=== PATIENT | male | born 1985 | race Caucasian/White ===

== ENCOUNTER 2024-03-12 16:41 | Emergency (ER) | payer OTHER, BC ==
--- OUTSIDE RECORDS SUMMARY | 2024-03-12 16:44 | XMS REPORT | Continuity of Care Document ---
Author Name Unknown Address [address] [facility] [address] [place] [address] [facility] thconnect Address [address] [facility] [place] [address] Care Team Providers Care Crane Service Technician Name Role Phone Neeraj Joya Primary Care Physician + [phone] Gemma Ca Attending Clinician [phone] Jazzmine Hartmann PA-C Attending Clinician [phone] Unknown, Attending Attending Clinician Unavailab JAZZMINE Nicolas Attending Clinician Unavailable GEMMA CASTANON Attending Clinician UnavailLai Majano Attending Clinician [phone] LAI CRESPO Attending Clinician Unavailable Doctor Unassigned, [employer] Attending Clinician U Radha Trejo Attending Clinician + [phone] RADHA TURNER Attending Clinician Yodit Herrera Attending Clinician [phone] Ramya Love Attending Clinician [phone] Dick Romano MD Attending Clinician [phone] Josh Wilson Attending Clinician [phone] Payers Payer Name Policy Type Policy Number Effective Date Expirati on Date Source Problems Condition Name Condition Details Condition Category Status Onset Date Resolution Date Last Treatment Date Treating Clinician Comments Source No known active problems No known active problems Disease [facility] Allergies, Adverse Reactions, Alerts Allergy Name Allergy Type Status Severity Reaction(s) Onset Date Inactive Date Treating Clinician Comments Source POISON DENA EXTRACT DRUG INGREDI Active Other-Cmnt 04-21 00:00: 00 [facility] Poison Dena Extract Propensi ty to adverse reaction s Active Other - See comments 04-21 00:00: 00 [facility] NO KNOWN ALLERGIE S Drug Class Active [facility] Social History Social Habit Start Date Stop Date Quantity Comments Source [facility] intake 2023-02-26 00:00:00 2023-02-26 00:00:00 Current non-drinker of alcohol (finding) [facility] Exposure to SARS-CoV-2 (event) 2021-12-15 00:00:00 2021-12-25 16:31:[address] [facility] Tobacco use and exposure 2021-12-25 00:00:00 2021-12-25 00:00:00 Smokeless tobacco non-user [facility] History of Social function 2018-09-04 00:00:00 2018-09-04 00:00:00 [facility] Sex Assigned At 1985 00:00:00 1985 00:00:00 [facility] Smoking Status Start Date Stop Date Source Never smoked tobacco [facility] Medications Ordered Medication Name Filled Medication Name Start Date Stop Date Current Medication? Ordering Clinician Indication Dosage Frequency Signature (SIG) Comments Components Source oseltamivir (TAMIFLU) 75 mg capsule 02-26 00:00: 00 03-04 05:59 :00 No [id number] 75mg Take 1 capsule by mouth in the morning and 1 capsule in the evening. Do all this for 5 days. [facility] nirmatrelvi r-ritonavir (PAXLOVID) 300 mg (150 mg x 2)-100 mg tablet 2022-02 00:00: 00 Yes [id number] 3{tbl} Take 3 tablets by mouth in the morning and 3 tablets in the evening. [facility] dexamethaso ne (DECADRON) injection 10 mg 11-24 18:30: 00 11-24 18:00 :00 No [id number] 10mg [facility] hydrocortis one 2.5 % cream 11-24 00:00: 00 Yes [id number] Apply to area(s) 2 (two) times daily. [facility] predniSONE 10 mg tablet 11-24 00:00: 00 12-07 04:59 :00 No [id number] Take 4 tablets by mouth daily for 3 days, THEN 3 tablets daily for 3 days, THEN 2 tablets daily for 3 days, THEN 1 tablet daily for 3 days. [facility] dexamethaso ne (DECADRON) injection 10 mg 11-06 23:30: 00 11-06 22:27 :00 No [id number] 10mg [facility] docosahexae noic acid/epa (FISH OIL ORAL) 11-06 17:06: 18 Yes Take by mouth. [facility] predniSONE 20 mg tablet 11-06 00:00: 00 11-12 04:59 :00 No [id number] 40mg Take 2 tablets by mouth in the morning for 5 days. [facility] testosteron e cypionate 200 mg/mL injection 09-19 00:00: 00 Yes 200mg 1 mL by Intramuscu lar route. [facility] acetaminoph en (TYLENOL) tablet 975 mg 10-26 00:45: 00 10-25 23:52 :00 No [id number] 975mg [facility] ibuprofen (IBU) tablet 800 mg 10-26 00:45: 00 10-25 23:52 :00 No [id number] 800mg [facility] nirmatrelvi r-ritonavir (PAXLOVID, EUA,) 300 mg (150 mg x 2)-100 mg tablet 2022-0 8-31 00:00: 00 12-05 00:00 :00 No [id number] 3{tbl} Take 3 tablets by mouth in the morning and 3 tablets in the evening. [facility] bromphenira mine-pseudo ephedrine-D M (BROMFED DM) 2-30-10 mg/5 mL syrup 2-04 00:00: 00 Yes [id number] 10mL Take 10 mL by mouth 2 (two) times daily as needed for Congestion /Allergies . [facility] ketorolac (TORADOL) injection 60 mg 03-20 04:45: 00 03-20 03:35 :00 No 60mg [facility] bromphenira mine-pseudo ephedrine-D M (BROMFED DM) 2-30-10 mg/5 mL syrup 03-19 00:00: 00 03-30 05:59 :00 No [id number] 10mL Take 10 mL by mouth 2 (two) times daily as needed for Congestion /Allergies for up to 10 days. [facility] ibuprofen 400 mg tablet 03-19 00:00: 00 03-25 05:59 :00 No [id number] 400mg Take 1 tablet by mouth every 6 (six) hours as needed for Pain (scale 4-6) for up to 5 days. [facility] BETA CAROTENE ORAL 11-09 20:43: 49 Yes Take by mouth. [facility] BETA CAROTENE ORAL 11-09 15:43: 49 Yes Take by mouth. [facility] BETA CAROTENE ORAL 09-08 14:23: 05 Yes Take by mouth. [facility] LEXAPRO 20 MG ORAL TAB 09-08 14:21: 47 Yes None Entered [facility] LEXAPRO 20 MG ORAL TAB 09-08 09:21: 47 Yes None Entered [facility] promethazin e-dextromet horphan 6.25-15 mg/5 mL syrup 07-16 00:00: 00 03-19 00:00 :00 No [id number] 5mL Take 5 mL by mouth 4 (four) times daily as needed for Cough. [facility] triamcinolo ne acetonide 0.1 % ointment 10-12 00:00: 00 Yes [id number] Apply to area(s) 3 (three) times daily. [facility] fluticasone 50 mcg/actuati on nasal spray 10-12 00:00: 00 03-19 00:00 :00 No [id number] 1 spray each nostril twice a day for 5 days then daily [facility] Immunizations Ordered Immunization Name Filled Immunization Name Date Status Comments Source TDAP (ADACEL) VACCINE Unknown Completed [facility] Influenza Virus Vaccine Quad .5 mL IM 6+ MO (FLUZONE/FLULAVAL/FL UARIX) Unknown Completed [facility] Hepatitis A Adult Unknown Completed Un [facility] HEPATITIS A [facility] HPV Unknown Completed [facility] MMR Unknown Completed [facility]heria [facility] (AD[facility]) VACCINE Unknown Completed [facility] Influenza Virus Vaccine Quad .5 mL IM 6+ MO (FLUZONE/FLULAVAL/FL UARIX) Unknown Completed [facility] Hepatitis A Adult Unknown Completed Un [facility] HEPATITIS A Unknown Completed [facility] HPV Unknown Completed [facility] MMR Unknown Completed [facility] Tetanus/Diptheria [facility] TDAP (ADACEL) VACCINE Unknown Completed [facility] Influenza Virus Vaccine Quad .5 mL IM 6+ MO (FLUZONE/FLULAVAL/FL UARIX) Unknown Completed [facility] Hepatitis A Adult [facility] HPV Unknown Completed [facility] MMR Unknown Completed [facility] Tetanus/Diptheria [facility] TDAP (ADACEL) VACCINE Unknown Completed [facility] Influenza Virus Vaccine Quad .5 mL IM 6+ MO (FLUZONE/FLULAVAL/FL UARIX) Unknown Completed [facility] Hepatitis A Adult [facility] Unknown Com[facility] MMR Unknown Completed [facility] Tetanus/Diptheria Unknown Completed Un [facility] Vital Signs Vital Name Observation Time Observation Value Comments S sriramce Systolic blood pressure 2023-02-26 18:45:00 142 mm[Hg] [facility] Diastolic blood pressure 2023-02-26 18:45:00 93 mm[Hg] [facility] Heart rate 2023-02-26 18:44:00 75 /[facility] Body temperature 2023-02-26 18:44:[address] [facility] Respiratory rate 2023-02-26 18:44:00 18 /min [facility] Body height 2023-02-26 18:44:00 177.8 cm [facility] Body weight 2023-02-26 18:44:00 91.173 kg [facility] BMI 2023-02-26 18:44:00 28.84 kg/m2 [facility] Oxygen saturation in Arterial blood by Pulse oximetry 2023-02-26 18:44:00 97 /min [facility] Systolic blood pressure 2022-12-05 21:35:00 125 mm[Hg] [facility] Diastolic blood pressure 2022-12-05 21:35:00 87 mm[Hg] [facility] Heart rate 2022-12-05 21:35:00 89 /min [facility] Body temperature 2022-12-05 21:35:[address] [facility] Respiratory rate 2022-12-05 21:35:00 15 /min [facility] Body height 2022-12-05 21:35:00 177.8 cm [facility] Body weight 2022-12-05 21:35:00 91.581 kg [facility] BMI 2022-12-05 21:35:00 28.97 kg/m2 [facility] Oxygen saturation in Arterial blood by Pulse oximetry 2022-12-05 21:35:00 99 /min [facility] Systolic blood pressure 2022-11-24 17:32:00 129 mm[Hg] [facility] Diastolic blood pressure 2022-11-24 17:32:00 87 mm[Hg] [facility] Heart rate 2022-11-24 17:32:00 79 /min [facility] Body temperature 2022-11-24 17:32:[address] [facility] Respiratory rate 2022-11-24 17:32:00 17 /min [facility] Body height 2022-11-24 17:32:00 177.8 cm [facility] Body weight 2022-11-24 17:32:00 91.882 kg [facility] BMI 2022-11-24 17:32:00 29.06 kg/m2 [facility] Oxygen saturation in Arterial blood by Pulse oximetry 2022-11-24 17:32:00 97 /min [facility] Systolic blood pressure 2022-11-06 22:09:00 147 mm[Hg] [facility] Diastolic blood pressure 2022-11-06 22:09:00 91 mm[Hg] [facility] Heart rate 2022-11-06 22:03:00 64 /min [facility] Body temperature 2022-11-06 22:03:[address] [facility] Respiratory rate 2022-11-06 22:03:00 14 /min [facility] Body height 2022-11-06 22:03:00 177.8 cm [facility] Body weight 2022-11-06 22:03:00 92.534 kg [facility] BMI 2022-11-06 22:03:00 29.27 kg/m2 [facility] Oxygen saturation in Arterial blood by Pulse oximetry 2022-11-06 22:03:00 100 /min [facility] Systolic blood pressure 2021-12-25 21:50:00 136 mm[Hg] [facility] Diastolic blood pressure 2021-12-25 21:50:00 89 mm[Hg] [facility] Heart rate 2021-12-25 21:50:00 85 /min [facility] Body temperature 2021-12-25 21:50:[address] [facility] Respiratory rate 2021-12-25 21:50:00 17 /min [facility] Body height 2021-12-25 21:50:00 177.8 cm [facility] Body weight 2021-12-25 21:50:00 88.451 kg [facility] BMI 2021-12-25 21:50:00 27.98 kg/m2 [facility] Oxygen saturation in Arterial blood by Pulse oximetry 2021-12-25 21:50:00 97 /min [facility] Body height 2021-10-25 23:33:00 177.8 cm [facility] Body weight 2021-10-25 23:33:00 93.214 kg [facility] BMI 2021-10-25 23:33:00 29.49 kg/m2 [facility] Oxygen saturation in Arterial blood by Pulse oximetry 2021-10-25 23:33:00 98 /min [facility] Systolic blood pressure 2021-10-25 23:33:00 128 mm[Hg] [facility] Diastolic blood pressure 2021-10-25 23:33:00 87 mm[Hg] [facility] Heart rate 2021-10-25 23:33:00 95 /min [facility] Body temperature 2021-10-25 23:33:[address] [facility] Respiratory rate 2021-10-25 23:33:00 18 /min [facility] Systolic blood pressure 2019-03-20 03:17:00 141 mm[Hg] [facility] Diastolic blood pressure 2019-03-20 03:17:00 89 mm[Hg] [facility] Heart rate 2019-03-20 03:16:00 74 /min [facility] Body temperature 2019-03-20 03:16:[address] [facility] Respiratory rate 2019-03-20 03:16:00 20 /min [facility] Body height 2019-03-20 03:16:00 177.8 cm [facility] Body weight 2019-03-20 03:16:00 95.709 kg [facility] BMI 2019-03-20 03:16:00 30.28 kg/m2 [facility] Oxygen saturation in Arterial blood by Pulse oximetry 2019-03-20 03:16:00 96 /min [facility] Systolic blood pressure 2018-11-09 20:44:00 118 mm[Hg] [facility] Diastolic blood pressure 2018-11-09 20:44:00 85 mm[Hg] [facility] Heart rate 2018-11-09 20:43:00 76 /min [facility] Body temperature 2018-11-09 20:43:[address] [facility] Respiratory rate 2018-11-09 20:43:00 17 /min [facility] Body height 2018-11-09 20:43:00 177.8 cm [facility] Body weight 2018-11-09 20:43:00 96.525 kg [facility] BMI 2018-11-09 20:43:00 30.53 kg/m2 [facility] Oxygen saturation in Arterial blood by Pulse oximetry 2018-11-09 20:43:00 97 /min [facility] Procedures Procedure Date / Time Performed Performing Clinician Source POCT MOLECULAR FLU 2023-02-26 18:55:00 Unknown, Attend [facility] POCT SARS-COV-2 ANTIGEN (BINAX NOW) 2023-02-26 18:48:00 Shahbaz [facility] POCT SARS-COV-2 ANTIGEN (BINAX NOW) 2022-12-05 21:38:00 Shahbaz [facility] POCT MOLECULAR FLU 2022-12-05 21:37:00 Unknown, Attend [facility] POCT MOLECULAR STREP 2022-12-05 21:33:00 [place], At[place]jay sandoval [facility] ASSIGNMENT OF BENEFITS 2022-11-06 21:51:16 Docto r Unassigned, [employer] [facility] POCT SARS-COV-2 ANTIGEN (BINAX NOW) 2021-10-25 23:40:[address] [facility] CONSENT/REFUSAL FOR DIAGNOSIS AND TREATMENT 2021-10-25 23:17:21 Doctor Unassigned, [employer] [facility] POCT RAPID STREP SCREEN FOR GROUP A 2018-11-09 20:42:[address] [facility] DERMATOPATHOLOGY TISSUE EXAM 2018-09-08 00:00:[address] [facility] Encounters Start Date/Time End Date/Time Encounter Type Admission Type Attending Clinicians Care Facility Care Department Encounter ID Source 2023-03-29 00:00:00 2023-03-29 00:00:00 Refill Gemma Castanon [facility] [id number] 350.1.13.10 4.2.7.2.686 [id number] [facility] 2023-02-26 12:20:00 2023-02-26 12:40:00 Urgent Care Jazzmine Hartmann, Attending [facility] [id number] 350.1.13.10 4.2.7.2.686 [id number] [facility] 2023-02-26 12:20:00 2023-02-26 12:20:00 Outpatient JAZZMINE FRYE [facility] [id number] [facility] 2023-01-14 00:00:00 2023-01-14 00:00:00 Refill Gemma Castanon [facility] [id number] 350.1.13.10 4.2.7.2.686 [id number] [facility] 2022-12-05 16:20:00 2022-12-05 17:24:32 Outpatient JAZZMINE FRYE [facility] [id number] [facility] 2022-12-05 16:20:00 2022-12-05 17:24:32 Urgent Care Jazzmine Hartmann, Attending [facility] [id number] 350.1.13.10 4.2.7.2.686 [id number] [facility] 2022-11-24 12:20:00 2022-11-24 13:08:55 Urgent Care Gemma Castanon Unknown, Attending [facility] 1.114 350.1.13.10 4.2.7.2.686 [id number] [facility] 2022-11-24 12:20:00 2022-11-24 13:08:55 Outpatient R GEMMA CASTANON [facility] [id number] [facility] 2022-11-06 17:00:00 2022-11-06 17:20:00 Urgent Care Lai Crespo Unknown, Attending [facility] [id number] 350.1.13.10 4.2.7.2.686 [id number] [facility] 2022-11-06 17:00:00 2022-11-06 17:00:00 Outpatient R LAI CRESPO [facility] [id number] [facility] 2022-11-06 00:00:00 2022-11-06 00:00:00 Orders Only Doctor Unassigned, [employer] [facility] 1.114 350.1.13.10 4.2.7.2.686 [id number] [facility] 2021-12-25 16:40:00 2021-12-25 17:00:00 Urgent Care Radha Turner Unknown, Attending [facility] 1.84.114 350.1.13.10 4.2.7.2.686 [id number] [facility] 2021-12-25 16:40:00 2021-12-25 16:40:00 Outpatient R RADHA TURNER [facility] [id number] [facility] 2021-10-25 18:20:00 2021-10-25 18:55:02 Outpatient R SAVI CRESPOJEAN PIERRE [facility] [id number] [facility] 2021-10-25 18:20:00 2021-10-25 18:55:02 Urgent Care Lai Crespo [facility] 1.2.114 350.1.13.10 4.2.7.2.686 [id number] [facility] 2021-10-25 00:00:00 2021-10-25 00:00:00 Orders Only Doctor Unassigned, [employer] [facility] 1.0.114 350.1.13.10 4.2.7.2.686 [id number] [facility] 2019-03-27 00:00:00 2019-03-27 00:00:00 Telephone Ramya Thomas [facility] [id number] 350.1.13.10 4.2.7.2.686 [id number] [facility] 2019-03-19 21:11:16 2019-03-19 21:26:16 Urgent Care Ramya Thomas, Attending [facility] [id number] 350.1.13.10 4.2.7.2.686 [id number] [facility] 2018-11-09 15:22:16 2018-11-09 15:37:16 Urgent Care Dick Romano, Attending [facility] [id number] 350.1.13.10 4.2.7.2.686 [id number] [facility] 2018-09-08 09:06:58 2018-09-18 13:39:07 Office Visit Josh Wilson [facility] [id number] 350.1.13.10 4.2.7.2.686 [id number] [facility] Results Test Description Test Time Test Comments Results Result Co mments Source [facility] Molecular [id number] 18:58:33* Test Item Value Reference Range Interpretation Comme nts POCT Molecular FluB (test co de = 08600-0) Positive Negative A Lab Interpretation (test cod e = 25826-7) Abnormal [facility] MOLECULAR [id number] 21:48:45* Test Item Value Reference Range Interpretation Comme nts POCT Molecular FluA (test co de = 13943-1) Negative Negative POCT Molecular FluB (test co de = 38069-3) Negative Negative Lab Interpretation (test cod e = 08334-9) Normal [facility] MOLECULAR [id number] 21:40:42* Test Item Value Reference Range Interpretation Comme nts POCT Molecular Strep (test c ode = 75587-8) Negative Negative Lab Interpretation (test cod e = 55174-3) Normal [facility] SARS-COV-2 ANTIGEN (BINAX NOW)2022-12-05 21:38:00* Test Item Value Reference Range Interpretation Comme nts POCT SARS-COV-2 ANTIGEN (test code = 46117-6) Positive Not Detected A On board controls acceptable with C Line (test code = 3574) Yes AYDIN (test code = AYDIN) accurate developme nt and interpretation of all internal controls Lab Interpretation (test code = 58381-6) Abnormal [facility] SARS-COV-2 ANTIGEN (BINAX NOW)2021-10-25 23:41:00* Test Item Value Reference Range Interpretation Comme nts POCT SARS-COV-2 ANTIGEN (test code = 5076) Positive Not Detected A On board controls acceptable with C Line (test code = 3574) Yes AYDIN (test code = AYDIN) accurate developme nt and interpretation of all internal controls Lab Interpretation (test code = 06793-2) Abnormal [facility] RAPID STREP SCREEN FOR GROUP [id number] 20:53:00* Test Item Value Reference Range Interpretation Comme nts POCT GP A STREP (test code = 19503-7) negative Negative - Negative AYDIN (test code = AYDIN) accurate developme nt and interpretation of all internal controls Lab Interpretation (test code = 51019-3) Normal [facility]
--- NOTE | 2024-03-12 17:48 | RAD REPORT ---
EXAMINATION: CT HEAD WITHOUT CONTRAST CT CERVICAL SPINE WITHOUT CONTRAST CLINICAL INDICATION: Male, 38 years old. head injury TECHNIQUE: Axial CT images from the skull base to the vertex without intravenous contrast. Axial CT i mages through the cervical spine were obtained without intravenous contrast. Sagittal and coronal reformatted images were created from the data set. Coronal and sagittal reformatted images were creat ed from the data set. One or more of the following dose reduction techniques were used: Automated exposure control, adjustment of the mA and/or kV according to patient size, and/or iterative reconstr uction. Unless otherwise specified, incidental findings do not require dedicated imaging follow-up. [id number]. COMPARISON: No prior exam. FINDINGS: Head: INTRACRANIAL: No acute intracranial hemorrhage. No hydrocephalus. No mass effect or midline shift. No significant white matter disease VASCULATURE: No visualized abnormalities in the arteries or dural venous sinuses. SCALP/SKULL: No significant soft tissue or osseous abnormalities. SINUSES: The visualized paranasal sinuses and mastoid air cells are predominantly clear. Cervical spine: ALIGNMENT: The cervical spine has normal alignment without scoliosis or spondylolisthesis. BONE: Vertebral body heights are maintained. No aggressive osseous lesions. DEGENERATIVE CHANGES: Mild cervical spondylosis with uncovertebral joint hypertrophy posterior disc o steophyte complexes at C3-4, C4-5, C5-6, C6-7 but without significant central spinal stenosis. Neural foraminal narrowing is mild to moderate bilaterally at C3-4 and mild at the other levels. SOFT TISSUE: No significant abnormalities in the soft tissue of the neck. The visualized lung apices are clear. IMPRESSION: No acute intracranial abnormality. No acute fracture or traumatic malalignment of the cervical spine.
[2024-03-12] MEDS ORDERED: LIDOCAINE 2% W/EPI 1:200,000 MPF 20 ML VIAL IM ONE (19:08)
--- NOTE | 2024-03-12 19:24 | ER ---
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 Denies ll1 LOC. Coronavirus screen: Client denies travel out of the [place] in the last 14 days. At this time, the client does not indicate any symptoms associated with coronavirus-19. Ebola Screen: Patient denies travel to an Ebola-affected area in the 21 days before illness onset. Mechanism of Injury: The problem was sustained at work. Initial Sepsis Screen: Does the patient meet any 2 criteria? No. Patient's initial sepsis screen is negative. Does the patient have a suspected source of infection? No. Patient's initial sepsis screen is negative. Risk Assessment: Do you want to hurt yourself or someone else? Patient reports no desire to harm self or others. Onset of symptoms was March 12, 2024. 16:43 Method Of Arrival: Ambulatory ll1 16:43 Acuity: [place] 2 ll1 19:41 Mechanism of Injury: resulted from. kj2 Triage Assessment: 19:39 General: Appears in no apparent distress. General: Behavior is calm, cooperative. kj2 Neuro: Reports denies headache at this time. Neuro: Level of Consciousness is awake, alert, obeys commands, Oriented to person, place, time, situation. Historical: - Allergies: 16:44 No Known Allergies; ll1 - Home Meds: 16:44 Lexapro Oral [Active]; rosuvastatin oral [Active]; ll1 - PMHx: 16:44 Hypercholesterolemia; ll1 - PSHx: 16:44 laprscopic abdominal surgery; ll1 - Immunization history:: Adult Immunizations. - Infectious Disease History:: Denies. - Social history:: Smoking status: Patient denies any tobacco usage or history of. Screenin:00 [facility] ED Fall Risk Assessment (Adult) History of falling in the last 3 months, jb4 including since admission No falls in past 3 months (0 pts) Confusion or Disorientation No (0 pts) Intoxicated or Sedated No (0 pts) Impaired Gait No (0 pts) Mobility Assist Device Used No (0 pt) Altered Elimination No (0 pt) Score/Fall Risk Level 0 - 2 = Low Risk Oriented to surroundings, Maintained a safe environment. Abuse screen: Denies threats or abuse. Nutritional screening: No deficits noted. Tuberculosis screening: No symptoms or risk factors identified. Assessment: 17:00 General: Appears in no apparent distress. comfortable, Behavior is calm, cooperative, jb4 appropriate for age. Pain: Complains of pain in top of head Pain does not radiate. Pain currently is 3 out of 10 on a pain scale. Neuro: Level of Consciousness is awake, alert, obeys commands, Oriented to person, place, time. Cardiovascular: Patient's skin is warm and dry. Respiratory: Airway is patent Respiratory effort is even, unlabored, Respiratory pattern is regular, symmetrical. Derm: Skin is intact, Skin is pink, warm \T\ dry. 19:15 Reassessment: Patient appears in no apparent distress at this time. Patient and/or kj2 family updated on plan of care and expected duration. Pain level reassessed. Patient is alert, oriented x 3, equal unlabored respirations, skin warm/dry/pink. 19:38 Reassessment: Patient appears in no apparent distress at this time. Patient and/or kj2 family updated on plan of care and expected duration. Pain level reassessed. Patient is alert, oriented x 3, equal unlabored respirations, skin warm/dry/pink. Vital Signs: 16:43 Pulse 85; Resp 18; Temp 98; Pulse Ox 98% ; Weight 90.72 kg; Height 5 ft. 10 in. ; Pain ll1 3/10; 19:35 BP 136 / 78; Pulse 80; Resp 20; Temp 98; Pulse Ox 100% ; kj2 16:43 Body Mass Index 28.70 (90.72 kg, 177.8 cm) ll1 16:43 Pain Scale: Adult ll1 [place] Coma Score: 16:43 Eye Response: spontaneous(4). Motor Response: obeys commands(6). Verbal Response: ll1 oriented(5). Total: 15. 17:02 Eye Response: spontaneous(4). Motor Response: obeys commands(6). Verbal Response: cp oriented(5). Total: 15. ED Course: 16:42 Patient arrived in ED. ll1 16:44 Triage completed. ll1 16:49 Ronn Guzman PA is PHCP. cp 16:49 Ronn Urbano MD is Attending Physician. cp 17:00 Patient has correct armband on for positive identification. Bed in low position. Call jb4 light in reach. Side rails up X 1. Provided Education on: plan of care. 17:35 CT Head C Spine In Process Unspecified. EDMS 19:37 Kayce Ceballos, EDWARD is Primary Nurse. kj2 19:38 Arm band placed on right wrist. kj2 19:38 No provider procedures requiring assistance completed. kj2 19:40 Patient did not have IV access during this emergency room visit. kj2 Administered Medications: 19:37 Drug: Lidocaine Infiltration (2 %) 20 ml 5 ml Infiltration once; to bedside with kj2 epinephrine {Note: administered by provider.} Volume: 5 ml; Route: Infiltration; 19:53 Follow up: Response: No adverse reaction kj2 Medication: 19:38 VIS not applicable for this client. kj2 Outcome: 19:24 Discharge ordered by MD. cp 19:39 Condition: stable kj2 19:39 Discharge instructions given to patient, Instructed on discharge instructions, follow up and referral plans. 19:40 Discharged to home ambulatory, kj2 19:54 Patient left the ED. kj2 Signatures: Dispatcher [employer] EDSC Ronn Guzman PA PA cp Bryson, James, RN RN jb4 Mary Low RN RN ll1 Kayce Ceballos RN RN kj2
--- NOTE | 2024-03-12 19:25 | EDPHYS ---
Physician Documentation [facility] Name: Lefty Lopez Age: 38 yrs Sex: Male : 1985 Arrival Date: 03/12/2024 Time: 16:41 Bed 12 Private MD: ED Physician Ronn Urbano HPI: 03/12 17:02 This 38 yrs old Male presents to ER via Ambulatory with complaints of Closed Head cp Injury-Adult. 17:02 The patient or guardian reports injury. The complaints affect the top of head. 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 Onset: The symptoms/episode began/occurred just prior to arrival. Associated signs and symptoms: Pertinent positives: neck pain. Historical: - Allergies: 16:44 No Known Allergies; ll1 - Home Meds: 16:44 Lexapro Oral [Active]; rosuvastatin oral [Active]; ll1 - PMHx: 16:44 Hypercholesterolemia; ll1 - PSHx: 16:44 laprscopic abdominal surgery; ll1 - Immunization history:: Adult Immunizations. - Infectious Disease History:: Denies. - Social history:: Smoking status: Patient denies any tobacco usage or history of. ROS: 17:05 Constitutional: Negative for body aches, chills, fever, poor PO intake, cp 17:05 Eyes: Negative for injury, pain, redness, and discharge, cp 17:05 Neck: Positive for pain with movement, pain at rest, Negative for stiffness, 17:05 Cardiovascular: Negative for chest pain, 17:05 Respiratory: Negative for cough, shortness of breath, wheezing, 17:05 Abdomen/GI: Negative for abdominal pain, vomiting, diarrhea, constipation, 17:05 Back: Negative for pain at rest, pain with movement, 17:05 Skin: Positive for laceration(s), of the scalp, 17:05 Neuro: Negative for altered mental status, loss of consciousness, seizure activity, weakness, 17:05 All other systems are negative, Exam: 17:10 Constitutional: The patient appears in no acute distress, alert, awake, non-toxic, well cp developed, well nourished, 17:10 Head/face: Noted is a laceration(s), that is linear, of the top of head, swelling, cp that is mild, tenderness, that is moderate, 17:10 Eyes: Periorbital structures: appear normal, Pupils: equal, round, and reactive to light and accomodation, Extraocular movements: intact throughout, Lids and lashes: appear normal, bilaterally, 17:10 ENT: External ear(s): are unremarkable, Nose: is normal, Mouth: Lips: moist, Oral mucosa: moist, Posterior pharynx: Airway: no evidence of obstruction, patent, 17:10 Neck: ROM/movement: pain, that is mild, with any movement, limited range of motion, is not appreciated, 17:10 Chest/axilla: Inspection: normal, 17:10 Cardiovascular: Rate: normal, Rhythm: regular, 17:10 Respiratory: the patient does not display signs of respiratory distress, Respirations: normal, no use of accessory muscles, no retractions, labored breathing, is not present, Breath sounds: are clear throughout, no decreased breath sounds, 17:10 Abdomen/GI: Exam negative for discomfort, distension, guarding, Inspection: abdomen appears normal, 17:10 Back: pain, is absent, ROM is normal, 17:10 Neuro: Orientation: to person, place \T\ time. Mentation: is normal, Motor: moves all fours, strength is normal, Sensation: is normal, Vital Signs: 16:43 Pulse 85; Resp 18; Temp 98; Pulse Ox 98% ; Weight 90.72 kg; Height 5 ft. 10 in. ; Pain ll1 3/10; 19:35 BP 136 / 78; Pulse 80; Resp 20; Temp 98; Pulse Ox 100% ; kj2 16:43 Body Mass Index 28.70 (90.72 kg, 177.8 cm) ll1 16:43 Pain Scale: Adult ll1 [place] Coma Score: 16:43 Eye Response: spontaneous(4). Motor Response: obeys commands(6). Verbal Response: ll1 oriented(5). Total: 15. 17:02 Eye Response: spontaneous(4). Motor Response: obeys commands(6). Verbal Response: cp oriented(5). Total: 15. Laceration: 19:22 Wound Repair of 8cm ( 3.1in ) subcutaneous laceration to top of head. Linear shaped.. cp Distal neuro/vascular/tendon intact. Anesthesia: Wound infiltrated with 8 mls of 2% lidocaine. Wound prep: Moderate cleansing by nurse. Skin closed with 12 Gareth using staple gun. Dressed with Bacitracin, 4x4's. Patient tolerated well. MDM: 16:49 Medical Screening Exam initiated cp 19:23 Data reviewed: vital signs, nurses notes, radiologic studies, CT scan, and as a result, cp I will discharge patient. 19:23 Differential diagnosis: Contusion of Hematoma on Laceration of Intracranial bleed- cp Concussion cerebral contusion. Counseling: I had a detailed discussion with the patient and/or guardian regarding the historical points, exam findings, and any diagnostic results supporting the discharge/admit diagnosis, radiology results, the need for outpatient follow up, a family practitioner, to return to the emergency department if symptoms worsen or persist or if there are any questions or concerns that arise at home. Response to treatment: the patient's symptoms have markedly improved after treatment, and as a result, I will discharge patient. Special discussion: Based on the patient's history, exam and DX evaluation, there is no indication for emergent intervention or inpatient [place]. It is understood by the patient/guardian that if the SXs persist or worsen they need to return immediately for re-evaluation. 03/12 17:00 Order name: CT Head C Spine; Complete Time: 17:53 cp 03/12 17:53 Order name: Wound Care: clean head wound; Complete Time: 18:56 cp Administered Medications: 19:37 Drug: Lidocaine Infiltration (2 %) 20 ml 5 ml Infiltration once; to bedside with kj2 epinephrine {Note: administered by provider.} Volume: 5 ml; Route: Infiltration; 19:53 Follow up: Response: No adverse reaction kj2 Disposition: 03/13 08:33 Chart complete. cp Disposition Summary: 03/12/24 19:24 Discharge Ordered Notes: Location: Home cp Problem: new cp Symptoms: have improved cp Condition: Stable cp Diagnosis - Scalp Laceration/ Open wound of scalp cp Followup: cp - With: Private Physician - When: 7 - 10 days - Reason: Staple/Suture removal Discharge Instructions: - Discharge Summary Sheet cp - Head Injury, Adult cp - Wound Care, Adult cp - Sutures, Temple, or Adhesive Wound Closure, [id number] cp Forms: - Medication Reconciliation Form cp - Antibiotic Education cp - Prescription Opioid Use cp - Patient Portal Instructions cp - Leadership Thank You Letter cp - Work release form [email or web address] Addendum: 03/18/2024 07:23 Co-signature as Attending Physician, Ronn Urbano MD I agree with the assessment and c baig plan of care. Signatures: Dispatcher [employer] Ronn Luis MD MD cha Page, Corey, PA PA cp Lewis, Lynsay, RN RN ll1 Kayce Ceballos RN RN kj2
[2024-03-13 03:14] VITALS: TEMP 98; O2SAT 98
== END 2024-03-12 19:54 | disposition home or self-care (01) ==
LOC: ER 16:41
DX: S01.01XA Laceration without foreign body of scalp, initial encounter (principal); W22.8XXA Striking against or struck by other objects, initial encounter
CPT/HCPCS: 12004; 70450; 72125; 99283